=== PATIENT | female | born 1945 | race Caucasian/White ===

== ENCOUNTER → 2017-09-10 | Outpatient (CLI) | payer OTHER ==
[~2017-09-10] VITALS: Ht 157.5 cm; Wt 95.9 kg
[~2017-09-10] MED LIST: AMBIEN 10 MG TA10 MG PO; CALCIUM 500 +1 EAC5 PO; CHOLESTEROL MED; FISH OIL 1,0001 EAC5 PO; FLEXERIL PO; FLONASE 0.05%50 MCG NASAL; HYDROCODON-ACE1 EAC5 PO; KLOR-CON 1010 MEQ PO; LEVOTHROID88 MCG PO; LIDODERM 5%1 PATC1 TOP; LISINOPRIL-HCT1 EAC1 PO; MAGNESIUM100 MG PO; MELOXICAM7.5 MG PO; MULTI-VITAMIN1 EAC5 PO; NABUMETONE 500500 M1 PO; NABUMETONE 750750 M1 PO; NORCO 5-325 TA1 EACH PO; PERCOCET 5-3251 EACH PO; PRAVASTATIN SOD20 MG PO; PROBIOTIC1 EACH PO; TRAMADOL HCL50 MG PO; VITAMIN D3400 UNIT/1 PO; ZEGERID 20 MG1 EACH PO; ZOFRAN ODT4 MG PO; [UNRECOGNIZED DRUG - REMARK]
--- NOTE | ~2017-09-10 | HPC ---
[facility] [place] [address] PAIN MANAGEMENT CONSULTATION Name: LOREECAM C Room #: REG [facility] Yaquelin.#: [id number] Admission: 09/10/17 Attend Phys: Gary Zurita MD Discharge: Date of : 49 Report #: [id number] THIS REPORT FOR: //name// CC: NEHEMIAH Zurita DATE OF SERVICE: 09/10/2017 Followup visit for chronic low back pain with radiculopathy. The patient now has new onset of pain in the area of the sacroiliac joint and right hip. HISTORY OF PRESENT ILLNESS: The patient was seen in the pain clinic today for 25-minute evaluation followed by injection. She had epidural injections in the past. They have been helpful somewhat. Pain recently is new and she has an MRI, which we have reviewed. It shows degenerative changes and facet changes with subluxation, stenosis of the neural foraminal L4-L5. There are no additional lateralizing protrusions seen. Pain is mostly on the right today. She has localized and exquisite tenderness over the sacroiliac joint. Pain radiates into the buttock and into the anterior lateral thigh and along the crease of the groin. MEDICATIONS: Reviewed and reconciled. She is on a nonsteroidal anti-inflammatory drug and a muscle relaxant for pain. She takes tramadol p.r.n. as well and has used a Lidoderm patch in the past. All medications prescribed by primary care physician. She is not a fall risk. She does not use an assist device. The patient denies use of tobacco. The patient has likely osteoarthritis of the hips judged by both physical exam and by x-ray. PHYSICAL EXAMINATION: Pleasant female. Blood pressure is 128/75, heart rate 82, respirations 16. BMI is 38.7. Weight loss strategies were discussed. Localized tenderness is noted along the right sacroiliac joint. Pressure there radiates pain in her usual distribution. PETERSON is positive for pain only in the sacroiliac joint with no hip pain noted. Hip range of motion is adequate with only mild discomfort in the anterior thigh. IMPRESSION: 1. Low back pain with likely sacroiliac joint pain mechanism. 2. History of lumbar radiculopathy, bilateral and this is improved since epidural injection. [address] [address] PAIN MANAGEMENT CONSULTATION Name: LOREECAM C Room #: REG [place] Banerjee#: [id number] Admission: 09/10/17 Attend Phys: Gary Zurita MD Discharge: Date of : 49 Report #: [id number] 3. Osteoarthritis. RECOMMENDATIONS: Sacroiliac injection on the right under fluoroscopic guidance. PROCEDURE: The patient was taken to fluoroscopic suite, placed prone, skin prepped with ChloraPrep. Skin anesthetized over the right sacroiliac joint. Using biplanar fluoroscopic views, I gently advanced needle into the posterior-inferior aspect of the joint. Negative aspiration was performed and then I injected a total of 0.5 mL of 0.5% bupivacaine mixed with 40 mg triamcinolone. She tolerated the procedure well and was observed for a short time and discharged. Pain was reduced to 0 at discharge. Follow up on an as needed basis. By: [id number] Gary Zurita MD /nt
[2017-09-10 09:19] VITALS: BP 128/75
== END | disposition home or self-care (01) ==
LOC: PAIN 07:17
DX: M53.3 Sacrococcygeal disorders, not elsewhere classified (principal); M25.551 Pain in right hip; G89.29 Other chronic pain; M54.5 Low back pain; M19.90 Unspecified osteoarthritis, unspecified site; Z87.891 Personal history of nicotine dependence; Z79.899 Other long term (current) drug therapy; Z98.890 Other specified postprocedural states

== ENCOUNTER → 2017-09-24 | Outpatient (CLI) | payer OTHER ==
[~2017-09-24] VITALS: Ht 157.5 cm; Wt 91.8 kg
[~2017-09-24] MED LIST changes: -NABUMETONE 500500 M1 PO; +PRAMIPEXOLE0.125 MG PO; +SYNTHROID100 MC1 PO
--- NOTE | ~2017-09-24 | HPC ---
[facility] [place] [address] PAIN MANAGEMENT CONSULTATION Name: CAM RALPH [facility] [id number] Admission: 09/24/17 Attend Phys: Gary Zurita MD Discharge: Date of : 49 Report #: [id number] THIS REPORT FOR: //name// CC: Silvia Zurita DATE OF SERVICE: 09/24/2017 Followup visit for bilateral sacroiliitis. The patient returns to pain clinic today with recurring sacroiliac joint pain now on the right and left. She was treated over the right sacroiliac joint at her last visit. Pain was reduced fairly dramatically there, but she still has a bit of pain and she has mostly pain on the left. We received authorization to proceed with a left sacroiliac injection and I will inject the right as well. She meets criteria by physical exam. MEDICATIONS: Reviewed and reconciled. PQRS was once again reviewed not a fall risk. She does not smoke. She is not hypertensive. She does have some osteoarthritis. PHYSICAL EXAMINATION: Pleasant female, alert and oriented. She moves from sitting to standing position, ambulates with some difficulty. She has marked tenderness noted along the left sacroiliac joint. The right is much improved. The pain radiates into the buttock. PETERSON is positive for pain in the SI joint, contralateral on each side. Hip range of motion is good. No straight leg raising discomfort, no radiculopathy. IMPRESSION: Bilateral sacroiliitis. PROCEDURE: Bilateral sacroiliac injection under fluoroscopic guidance. The patient was taken to fluoroscopic suite, placed prone, skin prepped with ChloraPrep. Skin was anesthetized over the sacroiliac joint, first on the left. A 25-gauge needle advanced through the posterior capsule and arthrogram obtained followed by 2 mL of 0.25% bupivacaine and a 40 mg triamcinolone. Needle was removed. We then moved to the right. Same procedure was performed. Skin was anesthetized 25-gauge needle advanced in the joint through the joint capsule posteriorly. Arthrogram was obtained and it was followed by 2 mL of 0.25% bupivacaine mixed with 40 mg of triamcinolone. She tolerated the procedure well. Pain was reduced in recovery room, she was discharged. [address] [address] PAIN MANAGEMENT CONSULTATION Name: CAM RALPH RODNEY Room #: REG [place] Banerjee#: [id number] Admission: 09/24/17 Attend Phys: Gary Zurita MD Discharge: Date of : 49 Report #: [id number] Follow up as needed. <ELECTRONICALLY SIGNED> By: Gary Zurita MD 10/08/17 1048 1113 2159 Gary Zurita MD /nt
--- NOTE | ~2017-09-24 | HPC ---
[facility] [address] [address] [place] [address] PAIN MANAGEMENT CONSULTATION Name: CAM RALPH RODNEY Room #: REG [facility] [id number] Admission: 09/24/17 Attend Phys: Gary Zurita MD Discharge: Date of : 49 Report #: [id number] THIS REPORT FOR: //name// CC: Silvia Zurita DATE OF SERVICE: 09/24/2017 Followup visit for lumbar spondylosis, bilateral sacroiliitis and chronic low back pain. The patient returns to the pain clinic today for further treatment. I have treated her intermittently with injections at times successfully for radiculopathy. She now has sacroiliac joint pain. This was treated both diagnostically and therapeutically with a right sacroiliac injection on her last visit on 09/10/2017. She is here today because she continues to have some pain on the right, although it is much better. She was hardly able to walk last visit, but that pain is reduced by greater than 50%. She now continues to have some tenderness on the left in the same location between this posterior superior iliac spine and down along the sacroiliac joint itself. She has decided against using further medication. She is continuing to try and do exercise. She does not use alcohol and is not a fall risk. She denies use of tobacco. She has osteoarthritis of the hips. PHYSICAL EXAMINATION: Blood pressure is 132/75 and heart rate is 80. She is able to move from a sitting to standing position and walks with mild antalgic features. She has localized tenderness bilaterally along the sacroiliac joints. There is a positive Domenica in the sacroiliac joints bilaterally at this time. Internal and external rotation of the hip is performed only with mild discomfort once again in the anterior thigh. She has negative straight leg raising discomfort. No numbness, no tingling and no weakness. IMPRESSION: Bilateral sacroiliac joint pain. RECOMMENDATIONS: Sacroiliac injections under fluoroscopic guidance. PROCEDURE: She was taken to the fluoroscopic suite, placed prone, skin prepped with ChloraPrep. Skin anesthetized first over the left sacroiliac joint. At the most posterior inferior location, I advanced a 25-gauge needle into the capsule into the joint. An arthrogram was obtained with a small amount of Omnipaque. It was then followed by 2 mL of 0.5% bupivacaine mixed with 40 mg of triamcinolone. Needle was removed. I then turned attention to the right. Skin was anesthetized there. A 25-gauge needle advanced again into the joint space through the posterior capsule as before. Slight arthrogram was obtained with small amount of Omnipaque and I injected at this time 20 mg of triamcinolone and an additional 2 mL of 0.5% bupivacaine. [address] [address] PAIN MANAGEMENT CONSULTATION Name: CAM RALPH RODNEY Room #: REG CLNura Banerjee#: [id number] Admission: 09/24/17 Attend Phys: Gary Zurita MD Discharge: Date of : 49 Report #: [id number] She tolerated the procedures well. She was observed for a short time and taken to the recovery room for close monitoring before discharge. Follow as needed. No medications ordered. <ELECTRONICALLY SIGNED> By: Gary Zurita MD 10/08/17 1048 1525 0255 Gary Zurita MD /nt
[2017-09-24 14:34] VITALS: BP 132/73
== END ==
LOC: PAIN 07:17
DX: M46.1 Sacroiliitis, not elsewhere classified (principal)

== ENCOUNTER → 2018-08-12 | Outpatient (CLI) | payer OTHER ==
[~2018-08-12] VITALS: Ht 157.5 cm; Wt 99.3 kg
--- NOTE | ~2018-08-12 | HPC ---
[facility] [place] [address] PAIN MANAGEMENT CONSULTATION Name: LOREECAM RODNEY Room #: REG [facility] Yaquelin.#: [id number] Admission: 08/12/18 Attend Phys: aGry Zurita MD Discharge: Date of : 49 Report #: [id number] THIS REPORT FOR: //name// CC: Silvia Zurita DATE OF SERVICE: 08/12/2018 Followup visit for chronic pain. The patient returns to pain clinic today complaining mostly of pain across the low back. It is well localized over her left sacroiliac joint. She has localized tenderness directly overlying the inferior portion of the joint. She has had previous injections bilaterally with good response. Last injection was 09/24/2017. She would like another injection. She is currently not receiving medication from our clinic. There have been no significant health changes since her last visit here other than an Orthopedic Surgery. She tore biceps tendon and was seen by an orthopedic surgeon who performed an open repair of that tendon. She has seen some improvement. She has some tenderness on the contralateral side in the suprascapular region along the trapezius. She describes it as fullness. I do not palpate a discrete mass. She is large breasted and her bra strap creates quite an impression upon her shoulder. This may be part of the problem impressing firmly against the shoulders and the muscle displacing it medially. PQRS: Shows that she has a history of diffuse osteoarthritis involving the hands, ankles and shoulders. She is morbidly obese with a BMI of 40. Weight loss has been discussed. Blood pressure 154/80, heart rate 90. Pain intensity 5/10, mostly involving the left sacroiliac joint. She is not a fall risk. She is on no blood thinners, but she is receiving medication for hypertension. All medications reviewed and reconciled. We do not provide medication for her. She has restless leg syndrome and takes Mirapex as well as cyclobenzaprine at bedtime and this has been helpful. Her antihypertensive is lisinopril, hydrochlorothiazide combination, prescribed by Dr. Glaser. SOCIAL HISTORY: She denies use of tobacco or alcohol. She has not fallen in the last 3 months. Physical exam reveals marked tenderness over the sacroiliac joint with a positive Domenica exacerbating discomfort on the left. IMPRESSION: Sacroiliac joint pain, left sacroiliitis. PROCEDURE: Fluoroscopic-guided sacroiliac joint. [address] [address] PAIN MANAGEMENT CONSULTATION Name: CAM RALPH Room #: REG CLI Lavonne#: [id number] Admission: 08/12/18 Attend Phys: Gary Zurita MD Discharge: Date of : 49 Report #: [id number] PROCEDURE: She was taken to fluoroscopic suite, placed prone, skin prepped with ChloraPrep. Skin anesthetized over the left SI joint. A 22 gauge needle was advanced in the inferior posterior capsule and 0.25 mL of Omnipaque to demonstrate an arthrogram was followed by 1 mL of 0.5% bupivacaine mixed with 40 mg of triamcinolone. She tolerated the procedure well and was observed for 45 minutes and discharged. No medications were ordered. By: [id number] Gary Zurita MD /nt
[2018-08-12 09:22] VITALS: BP 154/80
== END | disposition home or self-care (01) ==
LOC: PAIN 06:53
DX: M53.3 Sacrococcygeal disorders, not elsewhere classified (principal); I10 Essential (primary) hypertension; E66.01 Morbid (severe) obesity due to excess calories; G25.81 Restless legs syndrome; Z79.899 Other long term (current) drug therapy; Z68.41 Body mass index [BMI] 40.0-44.9, adult; Z98.890 Other specified postprocedural states; Z87.891 Personal history of nicotine dependence; Z88.8 Allergy status to other drugs, medicaments and biological substances

== ENCOUNTER → 2018-09-16 | Outpatient (CLI) | payer OTHER ==
[~2018-09-16] VITALS: Ht 157.5 cm; Wt 100.2 kg
[~2018-09-16] MED LIST changes: +LIDOCAINE1 EACH TRANSDERM; +OZEMPIC1 MG/0.75 SUBLING; +TRAMADOL 50 MG50 MG PO
--- NOTE | ~2018-09-16 | HPC ---
[facility] [address] [address] PAIN MANAGEMENT CONSULTATION Name: CAM RALPH Room #: REG Nura ..#: [id number] Admission: 09/16/18 Attend Phys: Gary Zurita MD Discharge: Date of : 49 Report #: [id number] THIS REPORT FOR: //name// CC: Silvia Zurita DATE OF SERVICE: 09/16/2018 Followup visit for chronic sacroiliac joint pain. The patient returns to clinic today and complains of severe pain in the right lower back. This correlates with her sacroiliac joint where she has had treatment in the past successfully. Previous treatments, however, were on the left. This pain is described as a localized deep aching sensation that radiates. It does not radiate further than the hip or the anterior thigh. She has had a flare for about the last 2-3 months in the right side. Pain intensity is a 5. Pain is worse with walking and standing. MEDICARE PQRS: She has a history of osteoarthritis of the back including sacroiliac joints as well as hands and/or ankles, worse on the left. BMI 40. Vital signs: Blood pressure 140/68, heart rate 101. Pain intensity 5/10. She is not a fall risk and has not fallen in the last 3 months. She is on no blood thinners. All medications are reviewed and reconciled. She takes lisinopril, hydrochlorothiazide combination for hypertension. She is on no opioid medications through our clinic and has, therefore, not signed an opioid agreement. She has low risk for any addiction. Functional assessment tool 55/70. PHYSICAL EXAMINATION: The low back reveals tenderness across the lumbosacral segment, but very exquisite tenderness over the right sacroiliac joint pains present with forward flexion, extension and rotation. Pain does not radiate in a radicular fashion, but tends to be fairly well localized in the sacroiliac joint, radiating out into the hip. IMPRESSION: Sacroiliitis, sacroiliac joint pain. RECOMMENDATIONS: Fluoroscopically guided sacroiliac joint. She was taken to fluoroscopic suite, placed prone, skin prepped with ChloraPrep. Skin anesthetized over the sacroiliac joint. At its inferior capsule, 22-gauge needle was advanced in the joint on the first attempt and 0.25 mL of Omnipaque injected to demonstrate a nice arthrogram. This was then followed by 1 mL of [facility] [address] [place] [address] PAIN MANAGEMENT CONSULTATION Name: CAM RALPH Room #: REG CLNura Banerjee#: [id number] Admission: 09/16/18 Attend Phys: Gary Zurita MD Discharge: Date of : 49 Report #: [id number] 0.5% lidocaine mixed with 40 mg of triamcinolone. She tolerated the procedure well. Pain 0 at discharge. Follow up as needed. By: [id number] Gary Zurita MD /charles
[2018-09-16 13:52] VITALS: BP 140/68
== END | disposition home or self-care (01) ==
LOC: PAIN 00:42
DX: M53.3 Sacrococcygeal disorders, not elsewhere classified (principal); M46.1 Sacroiliitis, not elsewhere classified; M16.0 Bilateral primary osteoarthritis of hip; M19.042 Primary osteoarthritis, left hand; M19.041 Primary osteoarthritis, right hand; M19.072 Primary osteoarthritis, left ankle and foot; M19.071 Primary osteoarthritis, right ankle and foot; I10 Essential (primary) hypertension; Z98.890 Other specified postprocedural states; Z79.899 Other long term (current) drug therapy; Z88.8 Allergy status to other drugs, medicaments and biological substances; Z87.891 Personal history of nicotine dependence

== ENCOUNTER → 2018-12-23 | Outpatient (CLI) | payer OTHER ==
[~2018-12-23] VITALS: Ht 157.5 cm; Wt 96.1 kg
--- NOTE | ~2018-12-23 | HPC ---
[facility] [place] [address] PAIN MANAGEMENT CONSULTATION Name: CAM RALPH Room #: REG [facility] [id number] Admission: 12/23/18 ������������������ Attend Phys: Gary Zurita MD Discharge: ������������������ Date of : 49 Report #: [id number] THIS REPORT FOR: //name// CC: NEHEMIAH Zurita DATE OF SERVICE: 12/23/2018 Followup visit for sacroiliac joint pain, left. The patient returns to pain clinic today reporting significant ongoing pain in the left sacroiliac joint. She has responded very favorably in the past to sacroiliac joint injections, particularly on the right. Her injections performed in the right provided complete pain relief, but the left is still persistent. She also complains of a variety of other pains. She has pain in her right shoulder and cervical spine. She complains of pain in her low back with some radiation also noted into the leg. She describes a clicking sensation in her neck. She saw a chiropractor who told her that it was inflamed, but she has seen no improvement from treatments. Regarding her low back, when she walks both feet seem to go numb. When she sits, she receives relief. She has not had an MRI of the lumbar spine. Right arm pain is mostly in the upper arm. It radiates into the inner arm towards the medial malleolus. She has pain with forward flexion, extension and rotation of her head. The patient has an upcoming surgery planned with Dr. Meño Ureña at [facility]. She has had a long-standing hiatal hernia, but recent EGD demonstrated that the hernia had extended above the diaphragm up to about 7 inches. There was some torsion as well and it was recommended that she have it treated surgically that is upcoming in about 3 weeks. PQRS review demonstrates osteoarthritis involving the hands and ankles. Pain intensity overall is 5/10 in the lumbar region as well as radiating into her legs with weightbearing and the same intensity is described for the pain in the neck and the sacroiliac joint. She is not a fall risk. She is not currently on blood thinners nor is she hypertensive, although she takes medications. All of her medications are on the electronic medical record for review. There have been no changes. She is not currently taking an opioid and has completed an opioid risk tool, which is negative. She does not use tobacco nor alcohol. PHYSICAL EXAMINATION: Pleasant female, BMI is 38.7. Blood pressure 151/78, heart rate 89, respirations 16. She is able [place] [address] PAIN MANAGEMENT CONSULTATION Name: CAM RALPH Room #: REG [facility] Yaquelin.#: [id number] Admission: 12/23/18 ������������������ Attend Phys: Gary Zurita MD Discharge: ������������������ Date of : 49 Report #: [id number] to standing position, but walks with mild antalgic features. There is marked tenderness over the left sacroiliac joint. There is bilateral straight leg raising tingling and numbness. Sensation is intact. Abdomen is mildly tender. IMPRESSION: 1. Low back pain with chronic spondylosis and sacroiliac joint pain. 2. Lumbar radiculopathy, bilateral lower extremities. 3. Cervical pain, likely cervical radiculopathy. For today, we are going to do some scanning x-rays and I have ordered shoulder, cervical spine and lumbar spine x-rays for review. Later in the afternoon, I was able to review these x-rays. Report shows that she has as expected degenerative changes throughout the lumbar spine. There is no listhesis at any level. Disk spaces are fairly well maintained throughout. There is some facet arthropathy. Sacroiliac joint arthritis is noted bilaterally. In the cervical spine, we see similar findings with degenerative changes and narrowing of the joint space. The shoulder x-ray shows evidence of acromioclavicular joint arthritis, which is mild and considered to be the only degenerative change. The acromiohumeral interval is normal. IMPRESSION: 1. Sacroiliac joint pain, which we will treat today with sacroiliac joint injection. 2. Cervicalgia with radiculopathy. 3. Low back pain with bilateral numbness and tingling, which is likely radicular as well. Followup is planned in 1 month after her surgery. PROCEDURE: Sacroiliac injection under fluoroscopic guidance. She was taken to fluoroscopic suite. She was placed prone, skin prepped with ChloraPrep. Skin anesthetized over the sacroiliac joint. A 20-gauge spinal needle was advanced into the sacroiliac joint without difficulty. After negative aspiration, I injected 1 mL of omnipaque. Needle had to be repositioned to obtain an arthrogram. A low arthrogram was achieved and then I injected 1 mL of 0.25% bupivacaine mixed with 40 mg of triamcinolone. He tolerated the procedure well. She was observed for 45 minutes and discharged. There were no complications. The patient will be notified regarding her x-rays taken today. ��������������������������������������������� ���������������������������������������� By: ��������������������������������������������� 1820 0117 Gary Zurita MD /nt
[2018-12-23 11:45] VITALS: BP 151/78
--- NOTE | 2018-12-23 12:00 | NUR ---
Pain Clinic Assessment: 1. History of Osteoarthritis: B/L HAND LEFT ANKLES History of Rheumatoid Arthritis: Not Applicable 2. Height: 5 ft. 2 in. 157.5 cm. Weight: 211.8 lb. oz. 96.072 kg. Patient's BMI: 38.7 3. Vital Signs: BP: 151/78 Pulse: 89 Resp: 16 Temp: 02 Sat: 100 ECG Mon: 4. Pain Intensity: 5 5. Fall Risk: Dizziness: N Needs help standing or walking: N Fallen in the last 3 months: N Fall risk comments: 6. Patient on Blood Thinner: None 7. History of Hypertension: Y 8. Opioid Therapy greater than 6 weeks: N Opiate Contract Signed: 9. Risk Assessment Tool Provided: LOW 10. Functional Assessment Tool: 55/70 11. Recreational Drug Use: Never Drug Type: Tobacco Use: Former Smoker Tobacco Type: Amount or Packs/day: How Many Years: Alcohol Use: Yes Frequency: Quant:
--- NOTE | 2018-12-23 12:00 | NUR ---
Document Date Vaccine Given This Visit If Applicable
== END | disposition home or self-care (01) ==
LOC: PAIN 07:03
DX: M53.3 Sacrococcygeal disorders, not elsewhere classified (principal); M51.16 Intervertebral disc disorders with radiculopathy, lumbar region; M50.123 Cervical disc disorder at C6-C7 level with radiculopathy; M19.011 Primary osteoarthritis, right shoulder; G89.29 Other chronic pain; M19.90 Unspecified osteoarthritis, unspecified site; Z87.891 Personal history of nicotine dependence; Z98.890 Other specified postprocedural states; Z88.8 Allergy status to other drugs, medicaments and biological substances; Z79.899 Other long term (current) drug therapy

== ENCOUNTER → 2019-03-27 | Outpatient (CLI) | payer OTHER ==
[~2019-03-27] MED LIST changes: +CELECOXIB200 MG PO
== END ==
LOC: MRI 09:34
DX: S83.282A Other tear of lateral meniscus, current injury, left knee, initial encounter (principal); M25.762 Osteophyte, left knee; X58.XXXA Exposure to other specified factors, initial encounter; Y93.89 Activity, other specified; Y92.89 Other specified places as the place of occurrence of the external cause; Y99.8 Other external cause status

== ENCOUNTER → 2019-06-26 | Outpatient (CLI) | payer OTHER ==
[~2019-06-26] VITALS: Ht 157.5 cm; Wt 96.7 kg
--- NOTE | ~2019-06-26 | HPC ---
[facility] [address] [address] PAIN MANAGEMENT CONSULTATION Name: CAM RALPH Room #: REG TRENTON Jamison.#: [id number] Admission: 06/26/19 ������������������ Attend Phys: Gary Zurita MD Discharge: ������������������ Date of : 49 Report #: [id number] THIS REPORT FOR: //name// CC: Silvia Zurita DATE OF SERVICE: 06/26/2019 Followup visit for right buttock pain and pain radiating into the groin down the anterior aspect of the right leg. This patient returns to pain clinic today with ongoing pain. She has received sacroiliac injections in the past with some benefit, particularly on the right. Left-sided injections have not been quite as helpful. Pain today is in the buttock, more so than the sacroiliac joint and she also has pain radiating down the right leg in the anterior thigh. It does not extend below the midthigh. It is worsened with standing or walking. It is relieved by medication, heat and cold. She has not had a previous hip x-ray or pelvic x-ray. PQRS REVIEW: 1. She has osteoarthritis, bilateral hands, ankles. Possibly hip as well. 2. BMI is 39. 3. Vital signs 159/73, heart rate 71, respirations 20, O2 sat 98. 4. Pain intensity 6. 5. No falls in the last 3 months, nor is she a fall risk. 6. No blood thinners. 7. History of hypertension, treated by Dr. Glaser. All medications have been reviewed and reconciled. 8. She is not on an opioid agreement. 9. She has completed an opioid risk tool and scored 0. 10. She has a very high functional assessment score of 59 suggesting significant impact of her pain. 11. Denies use of recreational drugs or tobacco, but does drink alcohol, yes on special occasions, 1, no more. PHYSICAL EXAMINATION: VITAL SIGNS: Today, her blood pressure is 159/73, heart rate 71. Her BMI is 39.0. She moves from sitting to standing position, ambulates with antalgic features. She has some pain in the right hip. Straight leg raising, internal and external rotation repeat some pain in the hip. Tenderness over the sacroiliac joint is noted. There is more pain radiating into the gluteus muscle than in the sacroiliac. Pain with internal or external rotation and a positive PETERSON suggesting hip etiology. [facility] [address] [place] [address] PAIN MANAGEMENT CONSULTATION Name: CAM RALPH Room #: REG CLI [facility]#: [id number] Admission: 06/26/19 ������������������ Attend Phys: Gary Zurita MD Discharge: ������������������ Date of : 49 Report #: [id number] RECOMMENDATION: Hip x-ray followed by hip injection under fluoroscopic guidance. She was taken to the Radiology Department, where a hip x-ray was performed. It showed mild degenerative changes of the acetabulum. No fracture seen. Acetabular osteophytes were present bilaterally. Enthesophytes were arising from the iliac crest. Articular surface appeared smooth, with no evidence of fracture. IMPRESSION: I think much of her pain is coming from her hip and this is hip osteoarthritis. Hip injection was recommended for a therapeutic benefit as well as some diagnostic considerations as well. PROCEDURE: Right hip injection under fluoroscopic guidance. She was taken to fluoroscopic suite, placed supine. Skin was prepped with ChloraPrep. A 22-gauge needle was advanced to the junction of the head and neck of the right hip. A 0.25 mL of Omnipaque demonstrated and arthrogram and spread within the capsule. It was then followed by 3 mL of 0.5% lidocaine mixed with 40 mg of triamcinolone. She tolerated the procedure well. Pain reduced by 50% at discharge. Follow up as needed. ��������������������������������������������� ���������������������������������������� By: ��������������������������������������������� [id number] Gary Zurita MD /nt
[2019-06-26 08:36] VITALS: BP 159/73
--- NOTE | 2019-06-26 08:51 | NUR ---
Pain Clinic Assessment: 1. History of Osteoarthritis: B/L HAND LEFT ANKLES History of Rheumatoid Arthritis: Not Applicable 2. Height: 5 ft. 2 in. 157.5 cm. Weight: 213.2 lb. oz. 96.707 kg. Patient's BMI: 39.0 3. Vital Signs: BP: 159/73 Pulse: 71 Resp: 20 Temp: 02 Sat: 98 ECG Mon: 4. Pain Intensity: 6 5. Fall Risk: Dizziness: N Needs help standing or walking: N Fallen in the last 3 months: N Fall risk comments: 6. Patient on Blood Thinner: None 7. History of Hypertension: Y 8. Opioid Therapy greater than 6 weeks: N Opiate Contract Signed: 9. Risk Assessment Tool Provided: LOW RISK 0/3 10. Functional Assessment Tool: 59/70 11. Recreational Drug Use: Never Drug Type: Tobacco Use: Former Smoker Tobacco Type: Amount or Packs/day: How Many Years: Alcohol Use: Yes Frequency: Special Occasions Quant: 1
== END | disposition home or self-care (01) ==
LOC: PAIN 06:46
DX: M25.551 Pain in right hip (principal); M16.11 Unilateral primary osteoarthritis, right hip; G89.29 Other chronic pain; I10 Essential (primary) hypertension; Z87.891 Personal history of nicotine dependence; Z88.8 Allergy status to other drugs, medicaments and biological substances; Z79.899 Other long term (current) drug therapy

== ENCOUNTER → 2019-10-28 | Outpatient (CLI) | payer OTHER | LOC: ULTRA 08:05 | DX: M25.462 Effusion, left knee (principal); I73.9 Peripheral vascular disease, unspecified ==

== ENCOUNTER → 2019-11-11 | Outpatient (CLI) | payer OTHER | LOC: RAD 11:25 → MRI 11:25 | DX: S83.282A Other tear of lateral meniscus, current injury, left knee, initial encounter (principal); S83.242A Other tear of medial meniscus, current injury, left knee, initial encounter; M25.462 Effusion, left knee; M25.451 Effusion, right hip; X58.XXXA Exposure to other specified factors, initial encounter; Y93.89 Activity, other specified; Y92.89 Other specified places as the place of occurrence of the external cause; Y99.8 Other external cause status ==

== ENCOUNTER → 2019-11-12 | Outpatient (CLI) | payer OTHER | LOC: MRI | DX: M70.61 Trochanteric bursitis, right hip (principal); M76.02 Gluteal tendinitis, left hip; M47.817 Spondylosis without myelopathy or radiculopathy, lumbosacral region ==

== ENCOUNTER → 2019-12-18 | Outpatient (CLI) | payer OTHER | LOC: MRI 11:15 → RAD 11:15 → MRI 12-19 10:51 | DX: S83.011A Lateral subluxation of right patella, initial encounter (principal); G62.9 Polyneuropathy, unspecified; M43.16 Spondylolisthesis, lumbar region; M47.816 Spondylosis without myelopathy or radiculopathy, lumbar region; M51.26 Other intervertebral disc displacement, lumbar region; M48.061 Spinal stenosis, lumbar region without neurogenic claudication; M51.27 Other intervertebral disc displacement, lumbosacral region; M48.07 Spinal stenosis, lumbosacral region; M06.4 Inflammatory polyarthropathy; M25.461 Effusion, right knee; M25.462 Effusion, left knee; M19.042 Primary osteoarthritis, left hand; M19.041 Primary osteoarthritis, right hand; M77.9 Enthesopathy, unspecified; M19.072 Primary osteoarthritis, left ankle and foot; M19.071 Primary osteoarthritis, right ankle and foot; X58.XXXA Exposure to other specified factors, initial encounter; Y93.89 Activity, other specified; Y92.89 Other specified places as the place of occurrence of the external cause; Y99.8 Other external cause status ==

== ENCOUNTER → 2020-01-05 | Outpatient (CLI) | payer OTHER ==
[~2020-01-05] VITALS: Ht 157.5 cm; Wt 103.3 kg
[~2020-01-05] MED LIST changes: +HYDROCODON-ACE1 EAC7 PO
[2020-01-05 13:42] VITALS: BP 154/84
--- NOTE | 2020-01-05 14:15 | NUR ---
Pain Clinic Assessment: 1. History of Osteoarthritis: B/L HAND LEFT ANKLES History of Rheumatoid Arthritis: Not Applicable 2. Height: 5 ft. 2 in. 157.5 cm. Weight: 227.8 lb. oz. 103.330 kg. Patient's BMI: 41.7 3. Vital Signs: BP: 154/84 Pulse: 98 Resp: 16 Temp: 02 Sat: 97 ECG Mon: 4. Pain Intensity: 6 5. Fall Risk: Dizziness: Y Needs help standing or walking: N Fallen in the last 3 months: N Fall risk comments: 6. Patient on Blood Thinner: None 7. History of Hypertension: Y 8. Opioid Therapy greater than 6 weeks: N Opiate Contract Signed: 9. Risk Assessment Tool Provided: LOW RISK 0/3 10. Functional Assessment Tool: 59/70 11. Recreational Drug Use: Never Drug Type: Tobacco Use: Former Smoker Tobacco Type: Amount or Packs/day: How Many Years: Alcohol Use: Yes Frequency: Quant:
--- NOTE | 2020-01-08 12:09 | HPC ---
[facility] [place] [address] [address] [place] [address] PAIN MANAGEMENT CONSULTATION Name: CAM RALPH Room #: REG TRENTON Yaquelin.#: [id number] Admission: 01/05/20 Attend Phys: Gary Zurita MD Discharge: Date of : 49 Report #: [id number] THIS REPORT FOR: cc: Silvia Glaser MD, Constance M. MD Morgan,Gary Ramírez MD ~ CC: Silvia Zurita DATE OF SERVICE: 01/05/2020 Followup visit for low back pain, now with radiculopathy, bilateral. The patient returns to pain clinic today with symptoms consistent with spinal stenosis and neurogenic claudication. She has had an MRI and an EMG since she was last here. The MRI shows significant spinal stenosis at L4-L5 due to a generalized disk bulge with posterior hypertrophic facet degenerative changes and thickening of the ligamentum flavum. This results in a mass effect on the descending L5 nerve roots bilaterally consistent with her symptoms. The stenosis is 7 mm. There is also some neural foraminal stenosis at L5-S1, worse on the left and mild on the right. She says she has intermittent numbness. In addition, because of her picture, Dr. Glaser sent her to see Felipe Gaspar for an EMG. Results of that test were available for me to review today. They are consistent with a radicular pattern and the spinal stenosis would suggest that the majority of her symptoms may be radicular in nature. She has been referred to a neurosurgeon. It will be some time before she can be seen and no elective procedures are currently being done. PQRS is positive for arthritis in the hands and ankles. She also has pain bilaterally into the hips. Her BMI is 41.7. Importance of weight control and management of chronic pain was discussed. Blood pressure 154/84, heart rate 98, respirations 16, O2 sat 97, pain intensity 6/10. She has some dizziness, but has not fallen. She is on no blood thinners. Dr. Glaser treats her for hypertension. All medications were reviewed and reconciled. She is not on an opioid agreement and has completed an opioid risk tool with a low risk for opioid addiction. She has in the past had some hydrocodone, but does not take any opioids on a regular basis. She denies use of tobacco, enjoys alcohol occasionally. PHYSICAL EXAMINATION: GENERAL: Pleasant female, in some discomfort. MUSCULOSKELETAL: She moves independently from sitting to standing, but [facility] [address] [place] [address] PAIN MANAGEMENT CONSULTATION Name: CAM RALPH Room #: REG CLI Kalie.#: [id number] Admission: 01/05/20 Attend Phys: Gary Zurita MD Discharge: Date of : 49 Report #: [id number] ambulates with antalgic gait. Tenderness across the lumbosacral segment is present. Bilateral tenderness also in the hips. Straight leg raising reproducing pain into the hips and into the anterolateral thigh. Some numbness is noted. Deep tendon reflexes are absent in knees and ankles. IMPRESSION: Lumbar radiculopathy secondary to spinal stenosis, L4-L5. RECOMMENDATION: L4-L5 epidural injection for pain relief. Procedure performed under fluoroscopic guidance. PROCEDURE: After informed consent, she was taken to fluoroscopic suite, placed prone, skin prepped with ChloraPrep. Skin anesthetized over the L4-L5 interspace. A 20-gauge Tuohy epidural needle advanced in the epidural space using loss of resistance technique. There was no blood or CSF aspirated. A 1 mL of Omnipaque injected. Good spread of dye observed in the epidural space followed by 3 mL of 0.5% lidocaine mixed with 80 mg of triamcinolone. She tolerated the procedure well and was observed for 45 minutes and discharged. Followup visit planned in 1 month. May consider a second injection depending on response. No medications were ordered. <ELECTRONICALLY SIGNED> By: Gary Zurita MD 01/08/20 [id number] Gary Zurita MD /nt
== END | disposition home or self-care (01) ==
LOC: PAIN 06:53
DX: M54.16 Radiculopathy, lumbar region (principal); M48.061 Spinal stenosis, lumbar region without neurogenic claudication; M19.90 Unspecified osteoarthritis, unspecified site; I10 Essential (primary) hypertension; G89.29 Other chronic pain; Z98.890 Other specified postprocedural states; Z79.899 Other long term (current) drug therapy; Z87.891 Personal history of nicotine dependence; Z88.8 Allergy status to other drugs, medicaments and biological substances

== ENCOUNTER → 2020-02-02 | Outpatient (CLI) | payer OTHER ==
[~2020-02-02] VITALS: Ht 157.5 cm; Wt 103.6 kg
--- NOTE | ~2020-02-02 | HPC ---
[facility] [place] [address] PAIN MANAGEMENT CONSULTATION Name: CAM RALPH Room #: REG ERASMONura Jamison.#: [id number] Admission: 02/02/20 Attend Phys: Gary Zurita MD Discharge: Date of : 49 Report #: [id number] THIS REPORT FOR: cc: Silvia Glaser MD, Constance M. MD Morgan,Gary Ramírez MD ~ CC: Silvia Zurita DATE OF SERVICE: 02/02/2020 Followup visit for low back pain radiating into both legs. HISTORY: The patient returns to pain clinic today, has had a little bit of relief from her epidural injection, but it was not dramatic. We discussed further options for treatment including medication and I pulled up her MRI, so that we could review it together in the room. She has pretty significant single level stenosis at lumbar L4-L5. This is resulting in symptoms of neurogenic claudication pain in her back, also pain radiating into her legs. Her last epidural injection was performed just above the level of the stenosis. She has a mild grade 1 spondylolisthesis, which is minimal. She is using both hydrocodone and a bit of tramadol; hydrocodone only for the most severe pain. I prescribed hydrocodone for her at last visit. Dr. Glaser had been providing tramadol for her. PQRS review is positive for osteoarthritis involving hands and also pain in her feet, which may be radicular but she describes it as arthritis. She is obese with a BMI of 41.8. Weight loss discussions regarding chronic pain management has been undertaken. Blood pressure 174/79, heart rate 96, respirations 20, O2 sat 97. Pain is 3 with sitting, 6 with standing and walking. Classic symptoms of claudication. Pain improves when she sits. She has no falls, no blood thinners. History of hypertension is under treatment by Dr. Glaser. All medications reviewed and reconciled. Her opioid risk tool score is 0. Pain is affecting all aspects of her activities of daily living. Her functional assessment tool score is 59/70. She is a former smoker, still consumes a small amount of alcohol on a social basis. PHYSICAL EXAMINATION: Pleasant female, moves independently from sitting to standing position, her gait is antalgic. She has some pain across her low back. Straight leg raising discomfort bilaterally. She also has pain into her hips with internal and external rotation. [facility] [address] [place] [address] PAIN MANAGEMENT CONSULTATION Name: CAM RALPH Room #: REG CL Lavonne#: [id number] Admission: 02/02/20 Attend Phys: Gary Zurita MD Discharge: Date of : 49 Report #: [id number] IMPRESSION: Low back pain with neurogenic claudication and spinal stenosis 7 mm L4-L5 with small degree of lumbar spondylosis and spondylolisthesis. RECOMMENDATIONS: She is a good candidate for MILD with her single level stenosis a good portion of which is thickened ligamentum flavum. Referred her to Dr. Buck Leung and sent some information to him electronically for review. She will try and make an appointment to see him soon. Followup with us as needed. By: [id number] Gary Zurita MD /nt
[2020-02-02 13:44] VITALS: BP 174/79
--- NOTE | 2020-02-02 13:54 | NUR ---
Pain Clinic Assessment: 1. History of Osteoarthritis: B/L HAND LEFT ANKLES History of Rheumatoid Arthritis: Not Applicable 2. Height: 5 ft. 2 in. 157.5 cm. Weight: 228.4 lb. oz. 103.602 kg. Patient's BMI: 41.8 3. Vital Signs: BP: 174/79 Pulse: 96 Resp: 20 Temp: 02 Sat: 97 ECG Mon: 4. Pain Intensity: 3; 6 WITH STAND/WALK 5. Fall Risk: Dizziness: N Needs help standing or walking: N Fallen in the last 3 months: N Fall risk comments: 6. Patient on Blood Thinner: None 7. History of Hypertension: Y 8. Opioid Therapy greater than 6 weeks: N Opiate Contract Signed: 9. Risk Assessment Tool Provided: LOW RISK 0/3 10. Functional Assessment Tool: 59/70 11. Recreational Drug Use: Never Drug Type: Tobacco Use: Former Smoker Tobacco Type: Amount or Packs/day: How Many Years: Alcohol Use: Yes Frequency: Quant:
== END ==
LOC: PAIN 07:03
DX: M47.816 Spondylosis without myelopathy or radiculopathy, lumbar region (principal); M43.16 Spondylolisthesis, lumbar region; Z79.899 Other long term (current) drug therapy

== ENCOUNTER → 2020-09-09 | Outpatient (CLI) | payer OTHER ==
[~2020-09-09] VITALS: Ht 157.5 cm; Wt 104.1 kg
[~2020-09-09] MED LIST changes: +CYMBALTA30 MG PO; +GABAPENTIN 100100 MG PO
[2020-09-09 08:44] VITALS: BP 147/63
--- NOTE | 2020-09-09 09:05 | NUR ---
Pain Clinic Assessment: 1. History of Osteoarthritis: B/L HAND LEFT ANKLES BACK History of Rheumatoid Arthritis: Not Applicable 2. Height: 5 ft. 2 in. 157.5 cm. Weight: 229.6 lb. oz. 104.146 kg. Patient's BMI: 42.0 3. Vital Signs: BP: 147/63 Pulse: 91 Resp: 20 Temp: 02 Sat: 98 ECG Mon: 4. Pain Intensity: 6 5. Fall Risk: Dizziness: N Needs help standing or walking: Y Fallen in the last 3 months: N Fall risk comments: 6. Patient on Blood Thinner: None 7. History of Hypertension: Y 8. Opioid Therapy greater than 6 weeks: Y Opiate Contract Signed: 9. Risk Assessment Tool Provided: LOW RISK 0/3 10. Functional Assessment Tool: 63/70 11. Recreational Drug Use: Never Drug Type: Tobacco Use: Former Smoker Tobacco Type: Amount or Packs/day: How Many Years: Alcohol Use: No Frequency: Quant:
== END | disposition home or self-care (01) ==
LOC: PAIN 06:37 → RAD 06:37 → PAIN 08:55
PROVIDERS: ATTEND Anesthesiology Pain Medicine
DX: M54.16 Radiculopathy, lumbar region (principal); M48.061 Spinal stenosis, lumbar region without neurogenic claudication; G89.29 Other chronic pain; M43.16 Spondylolisthesis, lumbar region; I10 Essential (primary) hypertension; M19.90 Unspecified osteoarthritis, unspecified site; F32.9 Major depressive disorder, single episode, unspecified; E66.01 Morbid (severe) obesity due to excess calories; Z98.890 Other specified postprocedural states; Z79.899 Other long term (current) drug therapy; Z87.891 Personal history of nicotine dependence; Z88.8 Allergy status to other drugs, medicaments and biological substances; Z68.41 Body mass index [BMI] 40.0-44.9, adult